=== PATIENT | male | born 1985 | race Hispanic/Latino ===

== ENCOUNTER 2016-07-18 18:13 | Emergency (ER) | payer SELFPAY ==
[2016-07-18 18:29] VITALS: BP 144/94; TEMP 99; O2SAT 99
--- NOTE | 2016-07-18 19:49 | ED.PDOC ---
History of Present Illness - General Chief Complaint: ENT Problem Stated Complaint: ear drainage Time Seen by Provider: 07/18/16 19:46 Source: patient, RN notes reviewed, Vital Signs reviewed Exam Limitations: no limitations - History of Present Illness Initial Comments: Patient is a 31 y/o male who has had a previous ruptured TM. He has had "green stuff" coming out of the left ear x 3 months. He is now having headaches. No fever/chills. No pain in the right ear. He has significant nasal congestion. Timing/Duration: other - 3 months Severity: mild Improving Factors: nothing Worsening Factors: nothing Associated Symptoms: headaches Allergies/Adverse Reactions: Allergies NO KNOWN ALLERGY Allergy (Verified 07/18/16 18:26) Home Medications: Ambulatory Orders Amoxicillin 875 mg PO BID #20 tab 07/18/16 Review of Systems - Review of Systems Constitutional: States: no symptoms reported EENTM: States: ear discharge, nose congestion Respiratory: States: no symptoms reported Cardiology: States: no symptoms reported Gastrointestinal/Abdominal: States: no symptoms reported Genitourinary: States: no symptoms reported Musculoskeletal: States: no symptoms reported Skin: States: no symptoms reported Neurological: States: no symptoms reported Endocrine: States: no symptoms reported Hematologic/Lymphatic: States: other - lump in the back of his neck Past Medical History (General) - Patient Medical History Hx Asthma: No Hx Cardiac Disorders: No Hx Hypertension: No Hx Diabetes: No Hx Cancer: No - Vaccination History Hx Tetanus, Diphtheria Vaccination: No Hx Influenza Vaccination: No Hx Pneumococcal Vaccination: No Immunizations Up to Date: No - Social History Hx Tobacco Use: Yes Hx Chewing Tobacco Use: No Hx Alcohol Use: Yes Hx Substance Use: No Family Medical History - Family History Father Family History: Unknown Living Status: Unknown Physical Exam - Physical Exam General Appearance: Alert, Comfortable, No apparent distress, Obese Ears, Nose, Throat: hearing grossly normal, abnormal TM (L) - Large TM rupture with purulent mucousy drainage, nasal congestion Neck: non-tender, full range of motion, supple, lymphadenopathy (R) Respiratory: lungs clear, normal breath sounds, no respiratory distress, no accessory muscle use Cardiovascular/Chest: regular rate, rhythm, no edema, no gallop, no murmur Gastrointestinal/Abdominal: normal bowel sounds, non tender, soft, no organomegaly Extremity: non-tender, normal inspection Neurologic: alert, normal mood/affect, oriented x 3 Skin Exam: normal color Departure - Departure Clinical Impression: Otitis media Qualifiers: Otitis media type: suppurative Laterality: left Chronicity: chronic Suppurative otitis media location: unspecified location Qualifier Code: (H66.3X2 ) Other chronic suppurative otitis media, left ear Perforation of tympanic membrane Qualifiers: Laterality: left Qualifier Code: (H72.92) Unspecified perforation of tympanic membrane, left ear Time of Disposition: 19:52 Disposition: Discharge to Home or Self Care Condition: Fair Departure Forms: ED Discharge - Pt. Copy, Patient Portal Self Enrollment Instructions: Middle Ear Infection, DI for Tympanic Membrane Perforation-Adult Diet: resume usual diet Referrals: [Primary Care Provider] - 1-2 Weeks Prescriptions: Amoxicillin 875 mg PO BID #20 tab Home Medications: Ambulatory Orders Amoxicillin 875 mg PO BID #20 tab 07/18/16 Additional Instructions: Start [id number] Flonase or Nasacort--two sprays in each nostril daily. Follow up with PCP in 2 weeks. Assure referral to ENT if symptoms persist or recur. Keep water out of left ear.
[2016-07-18] MEDS ORDERED: AMOXICILLIN 500 MG CAP ONE (20:02)
[2016-07-18] MEDS ORDERED: AMOXICILLIN 500 MG CAP PO ONE (20:04)
== END 2016-07-18 20:00 | disposition home or self-care (01) ==
LOC: ER 18:13
DX: H66.3X2 Other chronic suppurative otitis media, left ear (principal); H72.92 Unspecified perforation of tympanic membrane, left ear; Z87.891 Personal history of nicotine dependence

== ENCOUNTER 2017-03-28 08:21 | Emergency (ER) | payer SELFPAY ==
--- NOTE | 2017-03-28 08:40 | ED.PDOC ---
History of Present Illness - General Time Seen by Provider: 03/28/17 08:33 Source: patient Exam Limitations: no limitations - History of Present Illness Initial Comments: he patient's 31-year-old male presenting to the emergency room secondary to low back pain it's been present on the left adjacent to the L4-L5 area for approximately 1 week. No definite inciting injury can be remembered by the patient. He did go see a chiropractor twice last week but the pain has persisted somewhat. The pain is not severe and there is no significant radiation. No incontinence. No history of any back problems or compression fractures in the past. He does have some mild muscle spasm over that area. No palpable deformity. No step-off. No bruising or laceration. Timing/Duration: 1 week Severity: moderate Improving Factors: nothing Worsening Factors: nothing Associated Symptoms: denies symptoms Allergies/Adverse Reactions: Allergies NO KNOWN ALLERGY Allergy (Verified 07/18/16 18:26) Home Medications: Ambulatory Orders Cyclobenzaprine HCl [Flexeril] 5 mg PO TID PRN #30 tab 03/28/17 predniSONE [Prednisone] 20 mg PO DAILY #5 tab 03/28/17 Review of Systems - Review of Systems Constitutional: States: no symptoms reported EENTM: States: no symptoms reported Respiratory: States: no symptoms reported Cardiology: States: no symptoms reported Gastrointestinal/Abdominal: States: no symptoms reported Genitourinary: States: no symptoms reported Musculoskeletal: States: see HPI Skin: States: no symptoms reported Neurological: States: no symptoms reported Endocrine: States: no symptoms reported All other Systems: No Change from Baseline Past Medical History (General) - Patient Medical History Hx Asthma: No Hx Cardiac Disorders: No Hx Hypertension: No Hx Diabetes: No Hx Cancer: No - Vaccination History Hx Tetanus, Diphtheria Vaccination: No Hx Influenza Vaccination: No Hx Pneumococcal Vaccination: No - Social History Hx Tobacco Use: Yes Hx Chewing Tobacco Use: No Hx Alcohol Use: Yes Hx Substance Use: No Family Medical History - Family History Father Family History: Unknown Living Status: Unknown Physical Exam - Physical Exam General Appearance: Alert, Comfortable, No apparent distress Eye Exam: bilateral normal Ears, Nose, Throat: hearing grossly normal, normal ENT inspection, normal pharynx Neck: full range of motion, supple Respiratory: no respiratory distress, no accessory muscle use Cardiovascular/Chest: normal peripheral pulses, no edema Peripheral Pulses: radial,right: 2+, radial,left: 2+, dorsalis pedis,right: 2+, dorsalis pedis,left: 2+ Rectal Exam: deferred Back Exam: no vertebral tenderness, other - see history of present illness Extremity: normal range of motion, non-tender, normal inspection, no pedal edema , normal capillary refill 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 This appears to be primarily adjacent to L4-S1. The patient does need to do stretching exercises. Topical heat in the form of a heating pad or icy hot or Biofreeze may help. The patient will be written for 5 days of oral prednisone as an anti- inflammatory. He'll also be written for a muscle relaxer for the next week on an as-needed basis. He does need to be careful as the muscle relaxer can make him drowsy. X-rays are not warranted at this time. He should follow-up with his primary care doctor early next week. ER warnings were given for any acute worsening. Departure - Departure Clinical Impression: Acute myofascial strain of lumbar region Qualifiers: Encounter type: initial encounter Qualified Code(s): S39.012A - Strain of muscle, fascia and tendon of lower back, initial encounter Disposition: Discharge to Home or Self Care Condition: Fair Instructions: DI for Back Strain or Sprain, DI for Back Spasm Diet: regular diet Activity: increase activity as tolerated Referrals: Maria Luisa Vazquez NP [Primary Care Provider] - 1-5 Days Prescriptions: Cyclobenzaprine HCl [Flexeril] 5 mg PO TID PRN #30 tab PRN Reason: Muscle Spasms predniSONE [Prednisone] 20 mg PO DAILY #5 tab Home Medications: Ambulatory Orders Cyclobenzaprine HCl [Flexeril] 5 mg PO TID PRN #30 tab 03/28/17 predniSONE [Prednisone] 20 mg PO DAILY #5 tab 03/28/17 Additional Instructions: the patient is a 31-year-old male presenting with mild spasm of the paraspinal muscles of the lumbar spine on the left. This appears to be primarily adjacent to L4-S1. The patient does need to do stretching exercises. Topical heat in the form of a heating pad or icy hot or Biofreeze may help. The patient will be written for 5 days of oral prednisone as an anti- inflammatory. He'll also be written for a muscle relaxer for the next week on an as-needed basis. He does need to be careful as the muscle relaxer can make him drowsy. X-rays are not warranted at this time. He should follow-up with his primary care doctor early next week. ER warnings were given for any acute worsening.
[2017-03-28 08:43] VITALS: BP 130/90; TEMP 97.5; O2SAT 95
== END 2017-03-28 08:51 | disposition home or self-care (01) ==
LOC: ER 08:21
DX: S39.012A Strain of muscle, fascia and tendon of lower back, initial encounter (principal); Z87.891 Personal history of nicotine dependence; X58.XXXA Exposure to other specified factors, initial encounter

== ENCOUNTER → 2017-05-30 | Outpatient (CLI) | payer BC | END | disposition home or self-care (01) | LOC: YCFC.O 09:19 | PROVIDERS: ATTEND Nurse Practitioner Family | DX: R50.9 Fever, unspecified (principal) ==

== ENCOUNTER 2019-12-09 14:05 | Emergency (ER) | payer SELFPAY ==
[2019-12-09] MEDS ORDERED: SODIUM CHLORIDE 0.9% (FLUSH) 10 ML SYG IV PRN (14:29)
[2019-12-09] MEDS ORDERED: SODIUM CHLORIDE 0.9% 1000ML 1,000 ML IVS ONE (14:29)
--- NOTE | 2019-12-09 16:48 | ED.PDOC ---
History of Present Illness - General Chief Complaint: Diabetic Complaint Stated Complaint: elevated blood sugar, HTN Time Seen by Provider: 12/09/19 14:28 Source: patient, RN notes reviewed, Vital Signs reviewed Exam Limitations: no limitations - History of Present Illness Initial Comments: Patient is a 34-year-old morbidly obese male who presents from the clinic with complaints of high blood sugar. At the clinic, patient's blood sugar was 512. On arrival here patient's lab work was drawn and an IV started and IV fluids were started. Patient complained polyuria polydipsia and polyphagia. Patient states a number of years ago he was diagnosed as prediabetic. Patient has no other complaints except polys. Nothing seems to make the poly-urea, dip Dee or fascia better. Worse when he is working in the heat. Timing/Duration: getting worse, other - This is been going on for months. Severity: moderate Improving Factors: nothing Worsening Factors: nothing Associated Symptoms: other - Polyuria, polydipsia, polyphagia. Allergies/Adverse Reactions: Allergies NO KNOWN ALLERGY Allergy (Verified 07/18/16 18:26) Home Medications: Ambulatory Orders Cyclobenzaprine HCl [Flexeril] 5 mg PO TID PRN #30 tab 03/28/17 predniSONE [Prednisone] 20 mg PO DAILY #5 tab 03/28/17 Review of Systems - Review of Systems Constitutional: States: no symptoms reported, see HPI. Denies: chills, fever, malaise, weakness EENTM: States: no symptoms reported. Denies: eye pain, double vision Respiratory: States: no symptoms reported. Denies: cough, short of breath Cardiology: States: no symptoms reported. Denies: chest pain, palpitations, syncope Gastrointestinal/Abdominal: States: no symptoms reported, see HPI. Denies: abdominal pain, diarrhea, nausea, vomiting Genitourinary: States: see HPI, frequency Musculoskeletal: States: no symptoms reported. Denies: back pain, neck pain Skin: States: no symptoms reported. Denies: change in color, rash Neurological: States: no symptoms reported. Denies: depressed, tingling, tremors, weakness Endocrine: States: increased hunger, increased thirst, increased urine Hematologic/Lymphatic: Denies: no symptoms reported All other Systems: Reviewed and Negative Past Medical History (General) - Patient Medical History Hx Asthma: No Hx Cardiac Disorders: No Hx Hypertension: No Hx Diabetes: No Hx Cancer: No - Vaccination History Hx Tetanus, Diphtheria Vaccination: No Hx Influenza Vaccination: No Hx Pneumococcal Vaccination: No - Social History Hx Tobacco Use: Yes Hx Chewing Tobacco Use: No Hx Alcohol Use: Yes Hx Substance Use: No Family Medical History - Family History Father Family History: Unknown Living Status: Unknown Physical Exam - Physical Exam General Appearance: Alert, Anxious, Obese, Well Developed, Well Nourished Eye Exam: bilateral normal Ears, Nose, Throat: hearing grossly normal, normal ENT inspection, normal pharynx - Except for dry mucous membrane Neck: non-tender, full range of motion, supple Respiratory: chest non-tender, lungs clear, normal breath sounds, no respiratory distress, no accessory muscle use Cardiovascular/Chest: normal peripheral pulses, no edema, no gallop, no JVD, no murmur, tachycardia Peripheral Pulses: radial,right: 2+, radial,left: 2+ Gastrointestinal/Abdominal: normal bowel sounds, non tender, soft, no organomegaly, no pulsatile mass Back Exam: normal inspection, no CVA tenderness, no vertebral tenderness Extremity: normal range of motion, non-tender, normal inspection 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 12/09/19 16:50 Patient's symptoms have improved after the IV fluids. Did discuss this patient with the [facility], Lina Santana NP, she will see him in 2 days and start him on blood pressure medications as well as diabetes meds. I discussed with the patient the need to follow-up in 2 days and that he needs to be off work until then so that he does not go back into rhabdomyolysis. Patient voices understanding and agreement with the plan of care. Jose L Valenzuela M.D. #[id number] - Results/Orders Results/Orders: 12/09/19 14:29 IV Care:Saline Lock per Protoc QSHIFT Sodium Chloride 0.9% (Flush) [Saline Flush Syringe] 10 ml IV PRN PRN Laboratory Results - last 24 hr 12/09/19 12/09/19 12/09/19 14:30 14:30 14:30 WBC 8.9 RBC 5.99 Hgb 16.7 Hct 49.0 MCV 81.8 MCH 27.8 MCHC 34.0 RDW 13.2 Plt Count 228 MPV 9.7 Absolute Neuts (auto) 4.90 Absolute Lymphs (auto) 3.10 Absolute Monos (auto) 0.70 Absolute Eos (auto) 0.20 Absolute Basos (auto) 0.10 Neutrophils % 55.1 Lymphocytes % 34.5 Monocytes % 7.6 Eosinophils % 2.1 Basophils % 0.7 Sodium 131 L Potassium 3.1 L Chloride 92 L Carbon Dioxide 26 Anion Gap 16.1 BUN 13 Creatinine 0.83 BUN/Creatinine Ratio 15.7 Random Glucose 419 H* Serum Osmolality 280.9 Calcium 8.9 Total Bilirubin 1.1 H Direct Bilirubin 0.3 H Indirect Bilirubin 0.8 AST 67 H ALT 71 H Alkaline Phosphatase 119 Creatine Kinase 501 H* Serum Total Protein 8.6 H Albumin 4.1 Lipase 56 H Urine Color Yellow Urine Appearance Clear Urine pH 5.5 Ur Specific [place] 1.010 Urine Protein Negative Urine Glucose (UA) >=1000 H Urine Ketones 40 H Urine Blood Trace-intact H Urine Nitrite Negative Urine Bilirubin Negative Urine Urobilinogen 0.2 Ur Leukocyte Esterase Negative Urine RBC 1-3 Urine WBC 1-3 Ur Epithelial Cells 3-5 Urine Bacteria 0 Vital Signs 12/09/19 14:59 Temperature 97.6 F Pulse Rate [ 112 H brachial] Respiratory 18 Rate Blood Pressure 168/125 [Left Arm] O2 Sat by Pulse 96 Oximetry Departure - Departure Clinical Impression: Dehydration Diabetes mellitus Qualifiers: Diabetes mellitus type: type 2 Diabetes mellitus shelter insulin use: without extermination inspector use Diabetes mellitus complication status: without complication Qualified Code(s): E11.9 - Type 2 diabetes mellitus without complications Rhabdomyolysis Qualifiers: Rhabdomyolysis type: non-traumatic Qualified Code(s): M62.82 - Rhabdomyolysis Time of Disposition: 16:53 Disposition: Discharge to Home or Self Care Condition: Fair Departure Forms: ED Discharge - Pt. Copy, Patient Portal Self Enrollment Instructions: DI for Diabetes Type 2, Diabetes and Diet, Diabetic Meal Planning Diet: diabetic diet Activity: increase activity as tolerated Referrals: Maria Luisa Vazquez, [facility] [Primary Care Provider] - 1-2 Days Home Medications: Ambulatory Orders Cyclobenzaprine HCl [Flexeril] 5 mg PO TID PRN #30 tab 03/28/17 predniSONE [Prednisone] 20 mg PO DAILY #5 tab 03/28/17
[2019-12-09 18:35] VITALS: BP 143/113; TEMP 97.8; O2SAT 95
== END 2019-12-09 17:05 | disposition home or self-care (01) ==
LOC: ER 14:05
DX: E86.0 Dehydration (principal); E11.9 Type 2 diabetes mellitus without complications; E66.01 Morbid (severe) obesity due to excess calories; M62.82 Rhabdomyolysis; F17.200 Nicotine dependence, unspecified, uncomplicated
CPT/HCPCS: 36415; 80048; 80076; 81001; 82550; 83690; 85025; J7030